=== PATIENT | male | born 1940 | race Two or more races ===

== ENCOUNTER 2024-08-14 05:00 | Day surgery (SDC) | payer OTHER ==
[2024-08-07 09:59] VITALS: BP 133/81
[~2024-08-14] VITALS: Ht 172.7 cm; Wt 61.2 kg
[~2024-08-14 05:00] MED LIST: AMLODIPINE-OLM1 EACH; CREON DR 36,001 EACH; CRESTOL; ELIQUIS2.5 MG; METFORMIN; TOUJEO; TRAMADOL 50MG; ZESTRIL10 M1; [UNRECOGNIZED DRUG - OTHER]
[2024-08-14] MEDS ORDERED: CEFAZOLIN SODIUM 1,000 MG VIAL ONE (07:08)
[2024-08-14] MEDS ORDERED: BUPIVACAINE HCL/MPF 0.5% 30ML VIAL ONE (07:08)
[2024-08-14] MEDS ORDERED: LIDOCAINE HCL 1%/EPINEPHRINE 20ML VIAL IJ ONE (07:08)
[2024-08-14] MEDS ORDERED: HEPARIN SODIUM,PORCINE/PF 100 UNIT/ML SYRINGE IV ONE (07:26)
[2024-08-14] MEDS ORDERED: TRAMADOL HCL50 MG PO (10:50)
== END 2024-08-14 11:05 | disposition home or self-care (01) ==
LOC: CIR.AMB 05:00
PROVIDERS: ATTEND Surgery
DX: C25.0 Malignant neoplasm of head of pancreas (principal); Z88.6 Allergy status to analgesic agent; I10 Essential (primary) hypertension; J45.909 Unspecified asthma, uncomplicated; E11.9 Type 2 diabetes mellitus without complications
CPT/HCPCS: 36561; C1751

== ENCOUNTER 2025-03-18 07:00 | Day surgery (SDC) | payer OTHER ==
[2025-03-12 11:08] LABS: INR 1.04
[~2025-03-18 07:00] MED LIST changes: +PROSCAR5 MG PO; +TRAMADOL HCL50 MG PO
[2025-03-18] MEDS ORDERED: CEFAZOLIN SODIUM 1,000 MG VIAL ONE (07:04)
[2025-03-18] MEDS ORDERED: BUPIVACAINE HCL/MPF 0.5% 30ML VIAL ONE (10:05)
[2025-03-18] MEDS ORDERED: DIBUCAINE 30 GM TUBE ONE (10:06)
[2025-03-18] MEDS ORDERED: POVIDONE-IODINE 118 ML BOTT TOP ONE (10:06)
[2025-03-18] MEDS ORDERED: HEMOSTATIC MATRIX 1 KIT KIT TOP ONE (10:06)
== END 2025-03-18 13:25 | disposition home or self-care (01) ==
LOC: CIR.AMB 07:00
PROVIDERS: ATTEND Surgery
DX: T82.594A Other mechanical complication of infusion catheter, initial encounter (principal); C25.0 Malignant neoplasm of head of pancreas